=== PATIENT | female | born 1980 | race Caucasian/White ===

== ENCOUNTER 2022-05-13 09:17 | Outpatient (REF) | payer MEDICAID, SELFPAY ==
[2022-05-13 15:08] LABS: CT PCR NOT DETECTED (Not Detect.); NG PCR NOT DETECTED (Not Detect.)
[2022-05-14 14:24] LABS: BV Int Neg Control Negative (Negative); BV Int Pos Control Positive (Positive)
== END 2022-05-13 09:18 | disposition home or self-care (01) ==
LOC: HO.LNP 09:17
PROVIDERS: Visit Provider Advanced Practice Midwife
DX: Z11.3 Encounter for screening for infections with a predominantly sexual mode of transmission (principal); N93.9 Abnormal uterine and vaginal bleeding, unspecified; N88.9 Noninflammatory disorder of cervix uteri, unspecified; Z20.2 Contact with and (suspected) exposure to infections with a predominantly sexual mode of transmission
CPT/HCPCS: 81025; 87480; 87491; 87510; 87591; 87660; 99202

== ENCOUNTER 2022-06-20 16:25 | Outpatient (REF) | payer MEDICAID, SELFPAY ==
--- NOTE | ~2022-06-20 | US_ITS ---
EXAMINATION: US PELVIS CLINICAL INFORMATION: Noninflammatory disorder of cervix, uterus unspecified, last menstrual period 06/06/2022. COMPARISON: None. TECHNIQUE: Ultrasound of the pelvis is performed using both transabdominal and transvaginal transducers along with Doppler. Transvaginal imaging is performed due to inadequate visualization transabdominally. FINDINGS: The uterus is heterogeneous and measures 6.1 x 3.0 x 4.5 cm. No discrete fibroids. Endometrial thickness is 0.3 cm. No significant free fluid in the pelvis. Prominent vessels left adnexa, possibly related to pelvic congestion syndrome or other pathology. Left ovarian cyst measures 2.0 x 2.0 x 2.2 cm. Left ovary measures 3.0 x 2.1 x 2.4 cm, volume 7.9 mL. Right ovary is unremarkable and measures 2.8 x 1.2 x 1.7 cm, volume 3.0 mL. US/US pelvic and transvaginal IMPRESSION: Prominent left adnexal vessels, possibly related to pelvic congestion syndrome or other pathology. Left ovarian 2.2 cm cyst is likely simple. Recommend follow-up ultrasound in 6-8 weeks based on the clinical assessment. Endometrial thickness is 0.3 cm. No discrete fibroids.
[2022-06-20 17:54] LABS: Hematocrit 42.4 % (37.0-47.0); Hemoglobin 14.6 g/dl (12.0-16.0); Mean Corpuscular HGB Conc 34.4 g/dl (31.0-35.0); Mean Corpuscular Hemoglobin 32.6 pg (27.0-33.0); Mean Corpuscular Volume 94.6 fL (80.0-98.0); Mean Platelet Volume 9.7 fL (9.4-12.3); Platelet Count 269 X10*3/uL (160-400); Red Blood Count 4.48 X10*6/uL (4.20-5.50); Red Cell Distribution Width 11.9 % (11.0-16.0); White Blood Count 7.4 X10*3/uL (4.8-10.8)
[2022-06-20 18:33] LABS: Thyroid Stimulating Hormone 1.18 uIU/mL (0.32-4.0)
== END 2022-06-20 16:26 | disposition home or self-care (01) ==
LOC: HO.US 16:25
PROVIDERS: Visit Provider Advanced Practice Midwife
DX: N93.9 Abnormal uterine and vaginal bleeding, unspecified (principal); N88.9 Noninflammatory disorder of cervix uteri, unspecified
CPT/HCPCS: 36415; 76830; 76856; 84443; 85027

== ENCOUNTER 2022-07-14 09:30 | Outpatient (REF) | payer MEDICAID, SELFPAY | END 2022-07-14 09:31 | disposition home or self-care (01) | LOC: HO.LNP 09:30 | PROVIDERS: Visit Provider Advanced Practice Midwife | DX: N93.9 Abnormal uterine and vaginal bleeding, unspecified (principal); N88.9 Noninflammatory disorder of cervix uteri, unspecified; Z71.2 Person consulting for explanation of examination or test findings | CPT/HCPCS: 58100; 81025; 88305 ==

== ENCOUNTER → 2022-07-28 09:31 | Outpatient (BNVA) | payer MEDICAID, SELFPAY | PROVIDERS: PCP Internal Medicine; Visit Provider Advanced Practice Midwife | DX: Z71.2 Person consulting for explanation of examination or test findings (principal); Z30.09 Encounter for other general counseling and advice on contraception | CPT/HCPCS: 99212 ==

== ENCOUNTER 2022-08-15 13:58 | Outpatient (REF) | payer MEDICAID, SELFPAY ==
--- NOTE | ~2022-08-15 | MM_ITS ---
EXAMINATION: MM SCREENING DIGITAL BREAST TOMOSYNTHESIS, BILATERAL CLINICAL INFORMATION: Screening. Asymptomatic. The lifetime risk of breast cancer based on the Tyrer-Cuzick Model is 9%. COMPARISON: Mammography: 05/27/2016 (baseline) TECHNIQUE: Digital breast tomosynthesis is performed in both the craniocaudal and mediolateral oblique views along with computer-aided detection (CAD). Synthesized 2D images are generated from the tomosynthesis. FINDINGS: There are scattered areas of fibroglandular density (ACR BI-RADS breast composition Category b). Breast tissue composition borders on heterogeneously dense. Parenchymal pattern is similar to baseline exam. There is no significant mass or architectural abnormality or abnormal calcifications. Some fine vascular calcifications are again seen right breast upper outer quadrant and stable punctate round calcifications central outer left breast. The axilla and skin contours are unremarkable. No significant changes. MM/MM tomosynthesis screening BI IMPRESSION: No mammographic evidence of malignancy. ASSESSMENT: BI-RADS 2: Benign RECOMMENDATION: Routine annual mammography screening. This patient's information was entered into a reminder system with a target due date for their next mammogram.
== END 2022-08-15 13:59 | disposition home or self-care (01) ==
LOC: HO.MAMMO 13:58
PROVIDERS: Visit Provider Advanced Practice Midwife
DX: Z12.31 Encounter for screening mammogram for malignant neoplasm of breast (principal)
CPT/HCPCS: 77063; 77067

== ENCOUNTER 2022-08-16 09:11 | Outpatient (REF) | payer MEDICAID, SELFPAY | END 2022-08-16 09:12 | disposition home or self-care (01) | LOC: HO.LNP 09:11 | PROVIDERS: PCP Internal Medicine; Visit Provider Obstetrics & Gynecology | DX: N88.9 Noninflammatory disorder of cervix uteri, unspecified (principal); N76.0 Acute vaginitis | CPT/HCPCS: 0353U; 87480; 87510; 87660; 99212 ==

== ENCOUNTER 2022-08-16 09:48 | Outpatient (REF) | payer MEDICAID, SELFPAY ==
[2022-08-16 14:15] LABS: CT PCR NOT DETECTED (Not Detect.); NG PCR NOT DETECTED (Not Detect.)
[2022-08-17 12:54] LABS: BV Int Neg Control Negative (Negative); BV Int Pos Control Positive (Positive)
== END 2022-08-16 09:49 | disposition home or self-care (01) ==
LOC: HO.LAB 09:48
PROVIDERS: Visit Provider Obstetrics & Gynecology
DX: N76.0 Acute vaginitis (principal)
CPT/HCPCS: 0353U; 87480; 87510; 87660

== ENCOUNTER 2022-08-29 16:35 | Outpatient (REF) | payer MEDICAID, SELFPAY ==
--- NOTE | ~2022-08-29 | US_ITS ---
EXAMINATION: US PELVIS CLINICAL INFORMATION: Follow up ovarian cyst. COMPARISON: Ultrasound pelvis and transvaginal 06/20/2022. TECHNIQUE: Ultrasound of the pelvis is performed using both transabdominal and transvaginal transducers along with Doppler. Transvaginal imaging is performed due to inadequate visualization transabdominally. FINDINGS: Uterus: The uterus is anteverted, anteflexed and measures 8.0 x 3.2 x 4.7 cm. The double wall endometrial thickness is 0.6 cm. Punctate calcification seen in the endometrium. The uterus is smooth in contour and has normal myometrial echogenicity. No visible fibroid. Adnexa: Both ovaries are visualized. There is normal color flow to the adnexa. There is no ovarian torsion. There is no pelvic ascites or fluid collection. Right ovary measures 2.9 x 1.3 x 1.4 cm and volume 2.8 mL. Left ovary measures 2.9 x 1.8 x 2.5 cm and volume 6.8 mL. There is a simple anechoic cyst measuring 1.8 x 1.5 x 1.9 cm. There is small amount of free fluid in the cul-de-sac. There are prominent vessels seen in bilateral adnexa. US/US pelvic and transvaginal IMPRESSION: 1. Simple cyst left ovary. 2. The right ovary and the uterus are unremarkable. 3. Punctate calcification in the endometrium. 4. Bilateral prominent adnexa vessels suggestive of pelvic venous congestion.
== END 2022-08-29 16:36 | disposition home or self-care (01) ==
LOC: HO.US 16:35
PROVIDERS: PCP Internal Medicine; Visit Provider Advanced Practice Midwife
DX: N83.209 Unspecified ovarian cyst, unspecified side (principal)
CPT/HCPCS: 76830; 76856

== ENCOUNTER 2022-09-08 08:28 | Outpatient (REF) | payer MEDICAID, SELFPAY | END 2022-09-08 08:29 | disposition home or self-care (01) | LOC: HO.LNP 08:28 | PROVIDERS: PCP Internal Medicine; Visit Provider Obstetrics & Gynecology | DX: N88.9 Noninflammatory disorder of cervix uteri, unspecified (principal) | CPT/HCPCS: 57454; 88305 ==

== ENCOUNTER → 2022-09-13 08:19 | Outpatient (BNVA) | payer MEDICAID, SELFPAY | PROVIDERS: PCP Internal Medicine; Visit Provider Advanced Practice Midwife | DX: Z71.2 Person consulting for explanation of examination or test findings (principal); N83.292 Other ovarian cyst, left side; Z30.09 Encounter for other general counseling and advice on contraception | CPT/HCPCS: 99212 ==

== ENCOUNTER 2022-09-28 08:26 | Outpatient (REF) | payer MEDICAID, SELFPAY ==
[2022-09-28 14:17] LABS: CT PCR NOT DETECTED (Not Detect.); NG PCR NOT DETECTED (Not Detect.)
[2022-09-29 09:00] LABS: BV Int Neg Control Negative (Negative); BV Int Pos Control Positive (Positive)
== END 2022-09-28 08:27 | disposition home or self-care (01) ==
LOC: HO.LNP 08:26
PROVIDERS: PCP Internal Medicine; Visit Provider Obstetrics & Gynecology
DX: N76.0 Acute vaginitis (principal); N88.9 Noninflammatory disorder of cervix uteri, unspecified; Z71.2 Person consulting for explanation of examination or test findings
CPT/HCPCS: 0353U; 87480; 87510; 87660; 99212

== ENCOUNTER 2023-02-10 08:37 | Outpatient (AMB) | payer MEDICAID, SELFPAY ==
[2023-02-10 08:46] VITALS: BP 116/72; BMI 26.0
--- NOTE | 2023-02-10 08:46 | MHC.OFFVIS ---
Intake Vital Signs 02/10/23 08:46 Height 5 ft 6 in Weight 160 lb 14.999 oz BMI 26.0 BP 116/72 Intake Visit Reasons: pill check/30 min nepalese Intake Note: The patient agreed to use of a medical asst during this encounter. 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 Currently on OCP, Lessina. Doing well with no concerns. Reports monthly menses. She has tried continuous dosing in the past and was happy with it. Inquiring if OCP could cause weight gain. Admits to a healthy diet, does not exercise. Patient denies any contraindications to control such as tobacco use, migraines with aura, high blood pressure, liver disease, blood clotting disorders, DVT and PE. 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 Sexual orientation: Straight/Heterosexual Gender identity: Female Female Reproductive History Menstrual Age of Menarche: 11 Duration of menses: 3-5 days Date of last menstrual period: 01/31/23 control method: pills Review of Systems Const All systems reviewed & are unremarkable except as noted in HPI and below Physical Exam Vital Signs: Last Vital Signs BP 116/72 02/10/23 08:46 BMI result Body Mass Index 26.0 Const General: cooperative, healthy appearing, no acute distress, well developed and alert Assessment & Plan Assessment & Plan (1) Surveillance of contraceptive pill: Code(s): Z30.41 - Encounter for surveillance of contraceptive pills Plan: Offered to switch to a continuous dosing OCP; she opts to stay on her current OCP at this time. Reviewed use, side effects and warning of OCP, including ACHES. She was instructed to go to ER if she develops loss of vision, severe headache that does not resolve, chest pain, difficulty breathing, abdominal pain, or severe pain or tenderness in extremity. Encouraged routine exercise to help prevent weight gain. She will call the office with any concerns. RTO as scheduled 10/03/23 for AG. Will have further discussion of OCP at that time. Medications: Refilled levonorgestrel-ethinyl estrad 0.1-20 mg-mcg (Lessina) 1 tab PO DAILY 28 tabs 8RF Coding Level of Care Code Est Pt Level 3 (41771) Diagnoses Surveillance of contraceptive pill Z30.41
== END 2023-02-10 10:41 | disposition home or self-care (01) ==
LOC: HO.HWS 08:37
PROVIDERS: PCP Internal Medicine; Visit Provider Advanced Practice Midwife
DX: Z30.41 Encounter for surveillance of contraceptive pills (principal)
CPT/HCPCS: 99213

== ENCOUNTER → 2023-02-10 08:37 | Outpatient (BNVA) | payer MEDICAID, SELFPAY | PROVIDERS: PCP Internal Medicine; Visit Provider Advanced Practice Midwife | DX: Z30.41 Encounter for surveillance of contraceptive pills (principal) | CPT/HCPCS: 99213 ==